=== PATIENT | female | born 1960 | race Caucasian/White ===

== ENCOUNTER 2018-02-09 14:40 | Emergency (ER) | payer BC, OTHER ==
[~2018-02-09] VITALS: Ht 157.5 cm; Wt 57.7 kg
[2018-02-09] MEDS ORDERED: normal saline 1000ML IV soln IVB ONE ×2 (14:50→15:30)
[2018-02-09 15:02] LABS: BASOPHILS % (AUTO) 0 % (0-1); EOSINOPHILS # (AUTO) 0.2 X10'3 (0-0.9); EOSINOPHILS % (AUTO) 1.4 % (0-6); HEMATOCRIT 37.2 % (35.0-45.0); HEMOGLOBIN 12.9 g/dl (12.0-16.0); LYMPHOCYTES # (AUTO) 2.4 X10'3 (1.1-4.8); LYMPHOCYTES % (AUTO) 19.6 % (21-51); MEAN CORPUSCULAR HGB CONC 34.6 % (33.0-36.5); MEAN CORPUSCULAR VOLUME 83.8 FL (78-98); MEAN PLATELET VOLUME 8.7 FL (7.4-10.4); MONOCYTES # (AUTO) 0.6 X10'3 (0-0.9); MONOCYTES % (AUTO) 5.1 % (2-12); NEUTROPHILS # (AUTO) 8.9 X10'3 (1.8-7.7); NEUTROPHILS % (AUTO) 73.9 % (42-75); PLATELET COUNT 249 X10'3 (140-440); RED BLOOD COUNT 4.45 X10'6 (4.20-5.60); RED CELL DISTRIBUTION WIDTH 13.2 % (11.5-14.5); WHITE BLOOD COUNT 12.1 X10'3 (4.5-11.0)
[2018-02-09] MEDS ORDERED: LORazepam 2 mg/ml vial IV ONE (15:05)
[2018-02-09 15:12] LABS: INR 0.9 INR; PARTIAL THROMBOPLASTIN TIME 23 SECONDS (22-32); PROTHROMBIN TIME 9.8 SECONDS (9.0-12.0)
[2018-02-09 15:17] LABS: ALANINE AMINOTRANSFERASE 26 U/L (12-78); ALBUMIN 3.7 G/DL (3.4-5.0); ALBUMIN/GLOBULIN RATIO 1.1 (1.1-1.5); ALKALINE PHOSPHATASE 67 IU/L (46-116); ANION GAP 12 (8-16); ASPARTATE AMINO TRANSFERASE 17 U/L (10-37); BILIRUBIN,TOTAL 0.3 MG/DL (0.1-1.0); BLOOD UREA NITROGEN 11 MG/DL (7-18); BUN/CREATININE RATIO 7.2 (6.6-38.0); CALCIUM 9.7 MG/DL (8.5-10.1); CHLORIDE 104 MMOL/L (99-107); CREATININE 1.53 MG/DL (0.40-0.90); GLUCOSE 128 MG/DL (70-104); POTASSIUM 3.1 MMOL/L (3.5-5.1); SODIUM 140 MMOL/L (135-145); TOTAL CARBON DIOXIDE 23.9 MMOL/L (24-32); TOTAL PROTEIN 7.2 G/DL (6.4-8.2); eGFR 35 ML/MIN
[2018-02-09] MEDS ORDERED: potassium Cl 20 mEq SR tablet PO STA (15:24)
[2018-02-09] MEDS ORDERED: pantoprazole 40 MG vial IV ONE (15:45)
[2018-02-09] MEDS ORDERED: famotidine 20mg tablet PO ONE (15:45)
[2018-02-09 16:18] LABS: CLARITY,URINE SLIGHTLY CLOUDY (Clear); COLOR,URINE YELLOW (Yellow); GLUCOSE, URINE NEGATIVE (Neg); KETONES,URINE NEGATIVE (Neg); LEUKOCYTE ESTERASE ,URINE NEGATIVE (Neg); NITRITES, URINE NEGATIVE (Neg); OCCULT BLOOD,URINE SMALL (Neg); PH,URINE 5.5 (4.8-8.0); PROTEIN,URINE TRACE mg/dl (Neg); UROBILINOGEN,URINE 0.2 E.U/dL (0.2-1.0)
[2018-02-09 16:32] LABS: UA COLLECTION TYPE CLN CATCH MIDSTREAM
[2018-02-09 16:33] LABS: BACTERIA,URINE 1+ /HPF (Neg); HYALINE CASTS 0-3 /LPF (NEGATIVE); MUCUS STRANDS FEW /LPF (Neg); SQUAMOUS EPITHELIAL CELL,UR FEW /LPF (FEW)
[2018-02-09 16:34] LABS: RBC,URINE 0-2 /HPF (0-2)
[2018-02-09] MEDS ORDERED: CefTRIAXone 2gm/D5W 50ml 50 ML IV ONE (16:40)
[2018-02-09] MEDS ORDERED: CEPH500C5 PO (16:41)
[2018-02-09] MEDS ORDERED: POTA20TA19 PO (16:45)
[2018-02-09] MEDS ORDERED: ketorolac trometh. 30mg/ml inj. IV ONE (16:45)
[2018-02-09] MEDS ORDERED: ondansetron/PF 4mg/2ml inj IV ONE (17:00)
[2018-02-09 17:40] VITALS: BP 113/57
== END 2018-02-09 17:42 | disposition home or self-care (01) ==
LOC: ER 14:41
DX: N39.0 Urinary tract infection, site not specified (principal); E86.0 Dehydration; E87.6 Hypokalemia; G43.909 Migraine, unspecified, not intractable, without status migrainosus; Z79.2 Long term (current) use of antibiotics
CPT/HCPCS: 36415; 71045; 80053; 81001; 82948; 83880; 84484; 85025; 85610; 85730; 93005; 96361; 96365; 96375; 99285; C9113; J0696; J1885; J2060; J2405; J7030

== ENCOUNTER 2024-01-31 11:35 | Emergency (ER) | payer BC ==
[~2024-01-31] VITALS: Ht 160 cm; Wt 61.5 kg
[2024-01-31 12:58] LABS: BASOPHILS % (AUTO) 0.2 % (0-1); EOSINOPHILS % (AUTO) 0.1 % (0-6); HEMATOCRIT 40.3 % (35.0-45.0); HEMOGLOBIN 13.7 g/dl (12.0-16.0); LYMPHOCYTES # (AUTO) 0.4 X10'3 (1.1-4.8); LYMPHOCYTES % (AUTO) 3.3 % (21-51); MEAN CORPUSCULAR HEMOGLOBIN 29.1 PG (27.0-31.0); MEAN CORPUSCULAR HGB CONC 34.1 g/dL (33.0-36.5); MEAN CORPUSCULAR VOLUME 85.3 FL (78-98); MEAN PLATELET VOLUME 9.2 FL (7.4-10.4); MONOCYTES # (AUTO) 0.2 X10'3 (0-0.9); MONOCYTES % (AUTO) 1.5 % (2-12); NEUTROPHILS # (AUTO) 10.4 X10'3 (1.8-7.7); NEUTROPHILS % (AUTO) 94.9 % (42-75); PLATELET COUNT 253 X10'3 (140-440); RED BLOOD COUNT 4.72 X10'6 (4.20-5.60); RED CELL DISTRIBUTION WIDTH 13.6 % (11.5-14.5); WHITE BLOOD COUNT 10.9 X10'3 (4.5-11.0)
[2024-01-31 13:16] LABS: ALANINE AMINOTRANSFERASE 42 U/L (12-78); ALBUMIN/GLOBULIN RATIO 1.1 (1.1-1.5); ALKALINE PHOSPHATASE 84 IU/L (46-116); ANION GAP 8 (8-16); ASPARTATE AMINO TRANSFERASE 23 U/L (10-37); BILIRUBIN,TOTAL 0.4 MG/DL (0.1-1.0); BLOOD UREA NITROGEN 15 MG/DL (7-18); BUN/CREATININE RATIO 16.1 (10.0-20.0); CALCIUM 9.2 MG/DL (8.5-10.1); CHLORIDE 105 MMOL/L (99-107); CREATININE 0.93 MG/DL (0.40-0.90); GLUCOSE 124 MG/DL (70-104); LIPASE 23 U/L (16-77); POTASSIUM 3.7 MMOL/L (3.5-5.1); SODIUM 139 MMOL/L (135-145); TOTAL CARBON DIOXIDE 26.4 MMOL/L (24-32); TOTAL PROTEIN 7.8 G/DL (6.4-8.2); eCRCL 51 ML/MIN; eGFR 61 ML/MIN
[2024-01-31] MEDS: normal saline 1000ml 1,000 ML IV ONE (13:55)
[2024-01-31] MEDS: ondansetron/PF 4mg/2ml inj IV ONE (13:58)
[2024-01-31 14:07] LABS: URINE HCG NEGATIVE (NEG)
[2024-01-31 14:09] LABS: BILIRUBIN,URINE NEGATIVE (Neg); CLARITY,URINE CLEAR (Clear); COLOR,URINE YELLOW (Yellow); GLUCOSE, URINE NEGATIVE (Neg); KETONES,URINE 15 mg/dl (Neg); LEUKOCYTE ESTERASE ,URINE NEGATIVE (Neg); NITRITES, URINE NEGATIVE (Neg); OCCULT BLOOD,URINE SMALL (Neg); PH,URINE 8.5 (4.8-8.0); PROTEIN,URINE NEGATIVE (Neg); UROBILINOGEN,URINE 0.2 E.U/dL (0.2-1.0)
[2024-01-31 14:11] LABS: UA COLLECTION TYPE CLN CATCH MIDSTREAM
[2024-01-31 14:15] LABS: RBC,URINE 50-100 /HPF (0-2)
[2024-01-31 14:16] LABS: BACTERIA,URINE FEW /HPF (Neg); MUCUS STRANDS FEW /LPF (Neg); SQUAMOUS EPITHELIAL CELL,UR FEW /LPF (FEW)
[2024-01-31] MEDS ORDERED: ONDA-243 PO (15:52)
[2024-01-31] MEDS: LIDOcaine 2% Viscous 15ml cup MM ONE (16:18)
[2024-01-31] MEDS: mag hydrox/Alum hydrox/simeth 30ml oral suspension PO ONE (16:18)
[2024-01-31 17:05] VITALS: BP 100/50; PULSE 100; RESP 16; TEMP 98.2; O2SAT 97
== END 2024-01-31 17:08 | disposition home or self-care (01) ==
LOC: ER 11:36
DX: A08.39 Other viral enteritis (principal); E86.0 Dehydration; G43.909 Migraine, unspecified, not intractable, without status migrainosus
CPT/HCPCS: 36415; 80053; 81001; 81025; 83690; 85025; 87088; 96361; 96374; 99283; J2405; J7030

== ENCOUNTER 2024-07-07 13:40 | Emergency (ER) | payer BC ==
[~2024-07-07] VITALS: Ht 157.5 cm; Wt 64.6 kg
[~2024-07-07 13:40] MED LIST: ONDA-243 PO
[2024-07-07 15:17] VITALS: BP 129/80; PULSE 81; RESP 16; TEMP 98; O2SAT 98
== END 2024-07-07 15:18 | disposition home or self-care (01) ==
LOC: ER 13:41
DX: M67.432 Ganglion, left wrist (principal); G43.909 Migraine, unspecified, not intractable, without status migrainosus; Z88.8 Allergy status to other drugs, medicaments and biological substances
CPT/HCPCS: 99281